=== PATIENT | male | born 1975 | race African-American/Black ===

== ENCOUNTER 2016-07-04 17:56 | Emergency (ER) | payer BC, OTHER ==
[2016-07-04 18:20] VITALS: BP 105/55; PULSE 78; RESP 20; TEMP 97.8
[2016-07-04] MEDS ORDERED: ORPHENADRINE 30 MG/ML 2 ML VIAL IM STA (18:34)
[2016-07-04] MEDS ORDERED: KETOROLAC 60 MG/2 ML VIAL IM STA (18:34)
--- NOTE | 2016-07-04 18:38 | ED ---
Back Pain HPI - General Chief Complaint: Back Pain/Injury Stated Complaint: Back spasm Time Seen by Provider: 07/04/16 18:26 Source: patient, RN notes reviewed, old records reviewed Limitations: no limitations - History of Present Illness Initial Comments: This is a 40-year-old male presenting to the emergency Department chief complaint of lumbar back spasm. Patient warts is going on for the past 5 days. He reports that it is caused by sleeping on a hard foods on for the past week. Patient states he has no numbness or tingling going down his legs. Denies any saddle anesthesias. Patient reports that he's taken a Flexeril from a previous prescription as well as Motrin 800. Patient states that he's had no fever or chills, no nausea or vomiting or dysuria or hematuria or change in bowel movements. - Related Data Home Medications Medication Instructions Recorded Confirmed Ibuprofen [Motrin] 800 mg PO TID PRN 07/04/16 07/04/16 Previous Rx's Medication Instructions Recorded Cyclobenzaprine [Flexeril] 10 mg PO TID PRN #15 tab 07/23/15 Acetaminophen-Codeine 300-30mg 1 tab PO Q4H PRN #12 tablet 07/04/16 [Tylenol #3] RX: Baclofen 10 mg PO TID #30 tab 07/04/16 RX: Dexamethasone 0.75 mg PO DAILY #12 tab 07/04/16 Allergies Allergy/AdvReac Type Severity Reaction Status Date / Time Penicillins Allergy Swelling Verified 07/04/16 18:56 Review of Systems ROS Statement: Those systems with pertinent positive or pertinent negative responses have been documented in the HPI. ROS Other: All systems not noted in ROS Statement are negative. Past Medical History Past Medical History: No Reported History History of Any Multi-Drug Resistant Organisms: None Reported Past Surgical History: No Surgical Hx Reported Past Psychological History: No Psychological Hx Reported Smoking Status: Current every day smoker Past Alcohol Use History: Occasional Past Drug Use History: None Reported General Exam - General Exam Comments Initial Comments: This is a 40-year-old male. No acute distress. Limitations: no limitations General appearance: alert, in no apparent distress Head exam: Present: atraumatic, normocephalic, normal inspection Eye exam: Present: normal appearance, PERRL, EOMI. Absent: scleral icterus, conjunctival injection, periorbital swelling ENT exam: Present: normal exam, mucous membranes moist Neck exam: Present: normal inspection. Absent: tenderness, meningismus, lymphadenopathy Respiratory exam: Present: normal lung sounds bilaterally. Absent: respiratory distress, wheezes, rales, rhonchi, stridor Cardiovascular Exam: Present: regular rate, normal rhythm, normal heart sounds. Absent: systolic murmur, diastolic murmur, rubs, gallop, clicks GI/Abdominal exam: Present: soft, normal bowel sounds. Absent: distended, tenderness, guarding, rebound, rigid Extremities exam: Present: normal inspection, full ROM, normal capillary refill. Absent: tenderness, pedal edema, joint swelling, calf tenderness Back exam: Present: normal inspection, tenderness (Lumbar spinal tenderness.), muscle spasm. Absent: CVA tenderness (R), CVA tenderness (L), paraspinal tenderness, vertebral tenderness, rash noted Neurological exam: Present: alert, oriented X3, CN II-XII intact Psychiatric exam: Present: normal affect, normal mood Skin exam: Present: warm, dry, intact, normal color. Absent: rash Course Vital Signs 07/04/16 18:18 Temperature 97.8 F Pulse Rate 78 Respiratory 20 Rate Blood Pressure 105/55 O2 Sat by Pulse 100 Oximetry Medical Decision Making - Medical Decision Making This is a 40-year-old male presenting with chief Lower back strain and pain. Patient CT lumbar spine x-ray is negative for acute process. Patient reports the injury occurred after sleeping on a mattress that is uncomfortable for the past week. Patient refused IM Toradol and Norflex shots. Patient will be discharged with muscle relaxers, steroid and pain medication. Discussed close follow-up with primary care provider. Patient understands return parameters including saddle anesthesias. Patient understands treatment plan will comply. Return parameters were discussed. - Radiology Data Radiology results: report reviewed Normal lumbar spine. Disposition Clinical Impression: Lumbar paraspinal muscle spasm Disposition: HOME SELF-CARE Condition: Good Instructions: Acute Low Back Pain (ED) Additional Instructions: Is advised to rest, apply heat and ice to the back. Take the prescriptions as directed. Return to the emergency department if any alarming signs or symptoms occur including loss of bowel and bladder control. Patient should follow-up with primary care provider in the orthopedic physician for further evaluation if any concerns. Prescriptions: Acetaminophen-Codeine 300-30mg [Tylenol #3] 1 tab PO Q4H PRN #12 tablet PRN Reason: Pain RX: Baclofen 10 mg PO TID #30 tab RX: Dexamethasone 0.75 mg PO DAILY #12 tab Referrals: Alva Bajwa MD [STAFF PHYSICIAN] - 1-2 days Time of Disposition: 19:23
--- NOTE | 2016-07-04 19:18 | XR ---
EXAMINATION TYPE: XR lumbar spine 2 or 3V DATE OF EXAM: 07/04/2016 COMPARISON: NONE HISTORY: Pain TECHNIQUE: 3 view lumbar spine FINDINGS: There 5 lumbar-type vertebral bodies. Pedicles are intact. Disc heights are preserved. Vert ebral body heights are preserved. Alignment is normal. IMPRESSION: 1. Normal three-view lumbar spine
== END 2016-07-04 19:42 | disposition home or self-care (01) ==
LOC: EC 17:56
DX: M62.830 Muscle spasm of back (principal); F17.200 Nicotine dependence, unspecified, uncomplicated; Z88.0 Allergy status to penicillin
CPT/HCPCS: 72100; 99284

== ENCOUNTER 2017-08-03 11:23 | Emergency (ER) | payer SELFPAY ==
[2017-08-03 12:09] VITALS: BP 115/71; PULSE 70; RESP 18; TEMP 98.2
--- NOTE | 2017-08-03 12:30 | ED ---
General Adult HPI - General Chief complaint: Extremity Problem,Nontraumatic Stated complaint: Wrist Pain Time Seen by Provider: 08/03/17 12:17 Source: patient, RN notes reviewed Mode of arrival: ambulatory Limitations: no limitations - History of Present Illness Initial comments: Patient 41-year-old male presenting to the emergency room today with a chief complaint of pain from his carpal tunnel. Patient does admit that he had surgery on the left. Also admits that he has some pain now on the right. Patient states hands feel somewhat swollen last few days. 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 Patient states he try to the family doctor today but had an insurance issue state he came here to the emergency room. He states he did not go to work today. States he is out of his ibuprofen 800 mg. Patient denies any recent fever, chills, shortness of breath, chest pain, back pain, abdominal pain, nausea or vomiting, numbness or tingling, headaches or visual changes, or any other complaints. - Related Data Home Medications Medication Instructions Recorded Confirmed Ibuprofen [Motrin] 800 mg PO TID PRN 07/04/16 07/04/16 Previous Rx's Medication Instructions Recorded Cyclobenzaprine [Flexeril] 10 mg PO TID PRN #15 tab 07/23/15 Acetaminophen-Codeine 300-30mg 1 tab PO Q4H PRN #12 tablet 07/04/16 [Tylenol #3] Baclofen 10 mg PO TID #30 tab 07/04/16 Dexamethasone 0.75 mg PO DAILY #12 tab 07/04/16 Dexamethasone 0.75 mg PO DIRECTED #12 tablet 08/03/17 Ibuprofen [Motrin] 800 mg PO Q6HR #30 tab 08/03/17 Allergies Allergy/AdvReac Type Severity Reaction Status Date / Time Penicillins Allergy Swelling Verified 08/03/17 12:09 Review of Systems ROS Statement: Those systems with pertinent positive or pertinent negative responses have been documented in the HPI. ROS Other: All systems not noted in ROS Statement are negative. Past Medical History Past Medical History: No Reported History Additional Past Medical History / Comment(s): carpel tunnel History of Any Multi-Drug Resistant Organisms: None Reported Past Surgical History: No Surgical Hx Reported Additional Past Surgical History / Comment(s): carpel tunnel Past Psychological History: No Psychological Hx Reported Smoking Status: Current every day smoker Past Alcohol Use History: Occasional Past Drug Use History: None Reported General Exam - General Exam Comments Initial Comments: General: The patient is awake and alert, in no distress, and does not appear acutely ill. Neck: The neck is supple, there is no tenderness or JVD. Musculoskeletal: Normal appearance his hands bilaterally. Shows good range of motion. Does have tenderness with flexion at the left and right wrist against resistance. Patient strength 5/5. Radial pulse 2+ bilaterally. Sensations intact. Neurological: A&O x 3. CN II-XII intact, There are no obvious motor or sensory deficits. Coordination appears grossly intact. Speech is normal. Skin: Skin is warm and dry and no rashes or lesions are noted. Psychiatric: Normal mood and affect. Limitations: no limitations Course Vital Signs 08/03/17 12:07 Temperature 98.2 F Pulse Rate 70 Respiratory 18 Rate Blood Pressure 115/71 O2 Sat by Pulse 100 Oximetry Medical Decision Making - Medical Decision Making Patient advised to follow-up with family doctor also a orthopedic for further evaluation and possible treatment. Patient will be given a prescription for his ibuprofen 800 mg and given a short course of steroids for his symptoms. Disposition Clinical Impression: Carpal tunnel syndrome Disposition: HOME SELF-CARE Condition: Good Instructions: Arthralgia (ED) Additional Instructions: Please use medication as discussed. Please follow-up with orthopedic/family doctor in the next 2-5 days of symptoms have not improved. Please return to emergency room if the symptoms increase or worsen or for any other concerns. Prescriptions: Dexamethasone 0.75 mg PO DIRECTED #12 tablet Ibuprofen [Motrin] 800 mg PO Q6HR #30 tab Is patient prescribed a controlled substance at d/c from ED?: No Referrals: Jaime Pinto MD [Primary Care Provider] - 1-2 days Julien Goss DO [Doctor of Osteopathic Medicine] - 1-2 days Time of Disposition: 12:28
== END 2017-08-03 12:40 | disposition home or self-care (01) ==
LOC: EC 11:23
DX: G56.01 Carpal tunnel syndrome, right upper limb (principal); F17.200 Nicotine dependence, unspecified, uncomplicated; Z88.0 Allergy status to penicillin; Z98.890 Other specified postprocedural states
CPT/HCPCS: 99283

== ENCOUNTER 2018-09-06 02:36 | Emergency (ER) | payer OTHER ==
[2018-09-06 02:52] VITALS: BP 114/75; PULSE 70; RESP 18; TEMP 98.4
[2018-09-06] MEDS ORDERED: SULFAMETHOX-TMP 800-160MG 1 EACH TAB PO STA (03:35)
--- NOTE | 2018-09-06 03:52 | ED ---
General Adult HPI - General Chief complaint: Skin/Abscess/Foreign Body Stated complaint: Jaw Swelling Time Seen by Provider: 09/06/18 02:53 Source: patient Mode of arrival: ambulatory Limitations: no limitations - History of Present Illness Initial comments: Patient is a 43-year-old male presenting to emergency Department with a chief complaint of right-sided face swelling. Patient reports the swelling on the right side of his lower jaw started approximately a week ago and has gradually increased in size. Patient denies any tenderness, drainage or skin discoloration at the site of swelling. Patient denies any trouble swallowing, drooling, nausea vomiting. Patient denies any fevers, night sweats or chills. Patient reports a history of frequent ingrown hairs. - Related Data Home Medications Medication Instructions Recorded Confirmed Ibuprofen [Motrin] 800 mg PO TID PRN 07/04/16 07/04/16 Previous Rx's Medication Instructions Recorded Cyclobenzaprine [Flexeril] 10 mg PO TID PRN #15 tab 07/23/15 Acetaminophen-Codeine 300-30mg 1 tab PO Q4H PRN #12 tablet 07/04/16 [Tylenol #3] Baclofen 10 mg PO TID #30 tab 07/04/16 Dexamethasone 0.75 mg PO DAILY #12 tab 07/04/16 Dexamethasone 0.75 mg PO DIRECTED #12 tablet 08/03/17 Ibuprofen [Motrin] 800 mg PO Q6HR #30 tab 08/03/17 Sulfamethox-Tmp 800-160Mg [Bactrim 1 each PO Q12HR #20 tab 09/06/18 Ds] Allergies Allergy/AdvReac Type Severity Reaction Status Date / Time Penicillins Allergy Swelling Verified 09/06/18 02:52 Review of Systems ROS Statement: Those systems with pertinent positive or pertinent negative responses have been documented in the HPI. ROS Other: All systems not noted in ROS Statement are negative. Past Medical History Past Medical History: No Reported History Additional Past Medical History / Comment(s): carpel tunnel History of Any Multi-Drug Resistant Organisms: None Reported Past Surgical History: No Surgical Hx Reported Additional Past Surgical History / Comment(s): carpel tunnel Past Psychological History: No Psychological Hx Reported Smoking Status: Current every day smoker Past Alcohol Use History: Occasional Past Drug Use History: Marijuana General Exam Limitations: no limitations General appearance: alert, in no apparent distress Head exam: Present: atraumatic, normocephalic, normal inspection Eye exam: Present: normal appearance, PERRL, EOMI Pupils: Present: normal accommodation ENT exam: Present: normal exam, mucous membranes moist, TM's normal bilaterally, normal external ear exam. Absent: normal oropharynx (Left tonsil enlargement) Neck exam: Present: normal inspection, full ROM, lymphadenopathy (Right posterior cervical). Absent: tenderness Respiratory exam: Present: normal lung sounds bilaterally Cardiovascular Exam: Present: regular rate, normal rhythm Extremities exam: Present: normal inspection, full ROM Back exam: Present: normal inspection, full ROM Neurological exam: Present: alert, oriented X3 Psychiatric exam: Present: normal affect, normal mood Skin exam: Present: warm, intact, normal color Course Vital Signs 09/06/18 02:49 Temperature 98.4 F Pulse Rate 70 Respiratory 18 Rate Blood Pressure 114/75 O2 Sat by Pulse 100 Oximetry Disposition Clinical Impression: Swelling, mass, or lump on face Disposition: HOME SELF-CARE Condition: Stable Instructions (If sedation given, give patient instructions): MRSA (Methicillin- Resistant Staphylococcus Aureus) (ED) Additional Instructions: Please take prescribed medication as directed. Please follow up with general surgery. Apply warm compress at the site of swelling. Return to emergency department if symptoms worsen. Prescriptions: Sulfamethox-Tmp 800-160Mg [Bactrim Ds] 1 each PO Q12HR #20 tab Is patient prescribed a controlled substance at d/c from ED?: No Referrals: Jaime Pinto MD [Primary Care Provider] - 1-2 days Time of Disposition: 03:55
== END 2018-09-06 04:42 | disposition home or self-care (01) ==
LOC: EC 02:36
DX: R22.0 Localized swelling, mass and lump, head (principal); J35.1 Hypertrophy of tonsils; F17.200 Nicotine dependence, unspecified, uncomplicated; Z88.0 Allergy status to penicillin
CPT/HCPCS: 99283

== ENCOUNTER 2018-09-28 13:52 | Emergency (ER) | payer OTHER ==
[2018-09-28 13:58] VITALS: BP 125/75; PULSE 90; RESP 18; TEMP 97.8
--- NOTE | 2018-09-28 14:21 | ED ---
Back Pain HPI - General Chief Complaint: Back Pain/Injury Stated Complaint: Lt sided numbness Time Seen by Provider: 09/28/18 14:01 Source: patient, RN notes reviewed Limitations: no limitations - History of Present Illness Initial Comments: This a 43-year-old male presents emergency Department chief complaint of low back pain, left leg pain and numbness. Patient states that symptoms started we will MORNING. Patient also has a history of carpal tunnel and he's been having issues with numbness of his hands. Denies any focal weakness denies headache, neck pain or neck stiffness. Denies any chest pain or shortness breath. Patient is not taking any medications today for symptoms. Patient does do strenuous work daily has been working more than usual. He has no difficulty ambulating denies any blurred vision no facial symptoms. - Related Data Home Medications Medication Instructions Recorded Confirmed Ibuprofen [Motrin] 800 mg PO TID PRN 07/04/16 07/04/16 Previous Rx's Medication Instructions Recorded Cyclobenzaprine [Flexeril] 10 mg PO TID PRN #15 tab 07/23/15 Acetaminophen-Codeine 300-30mg 1 tab PO Q4H PRN #12 tablet 07/04/16 [Tylenol #3] Baclofen 10 mg PO TID #30 tab 07/04/16 Dexamethasone 0.75 mg PO DAILY #12 tab 07/04/16 Dexamethasone 0.75 mg PO DIRECTED #12 tablet 08/03/17 Ibuprofen [Motrin] 800 mg PO Q6HR #30 tab 08/03/17 Sulfamethox-Tmp 800-160Mg [Bactrim 1 each PO Q12HR #20 tab 09/06/18 Ds] Cyclobenzaprine [Flexeril] 10 mg PO TID PRN #15 tab 09/28/18 predniSONE 50 mg PO DAILY #5 tab 09/28/18 Allergies Allergy/AdvReac Type Severity Reaction Status Date / Time Penicillins Allergy Swelling Verified 09/28/18 13:58 Review of Systems ROS Statement: Those systems with pertinent positive or pertinent negative responses have been documented in the HPI. ROS Other: All systems not noted in ROS Statement are negative. Past Medical History Past Medical History: No Reported History Additional Past Medical History / Comment(s): carpel tunnel, back pain History of Any Multi-Drug Resistant Organisms: None Reported Past Surgical History: No Surgical Hx Reported Additional Past Surgical History / Comment(s): carpel tunnel Past Psychological History: No Psychological Hx Reported Smoking Status: Current every day smoker Past Alcohol Use History: Occasional Past Drug Use History: Marijuana General Exam Limitations: no limitations General appearance: alert, in no apparent distress Head exam: Present: atraumatic, normocephalic, normal inspection Eye exam: Present: normal appearance, PERRL, EOMI. Absent: scleral icterus, conjunctival injection, periorbital swelling ENT exam: Present: normal exam, normal oropharynx, mucous membranes moist Neck exam: Present: normal inspection, full ROM. Absent: tenderness, meningismus, lymphadenopathy Respiratory exam: Present: normal lung sounds bilaterally. Absent: respiratory distress, wheezes, rales, rhonchi, stridor Cardiovascular Exam: Present: regular rate, normal rhythm, normal heart sounds. Absent: systolic murmur, diastolic murmur, rubs, gallop, clicks GI/Abdominal exam: Present: soft, normal bowel sounds. Absent: distended, tenderness, guarding, rebound, rigid Extremities exam: Present: other (Lower extremity strength equal bilaterally, pain with left straight leg raise, pulses are equal bilaterally equal color equal warmth, upper extremity full range of motion full-strength neurovascular intact, pain with Tinel's) Back exam: Present: full ROM, tenderness (Mild left lower lumbar), paraspinal tenderness. Absent: vertebral tenderness Neurological exam: Present: alert, CN II-XII intact, reflexes normal, other (Finger to nose equal bilaterally, equal strength of all extremities). Absent: oriented X3, motor sensory deficit Skin exam: Present: warm, dry, intact, normal color. Absent: rash Course Vital Signs 09/28/18 13:54 Temperature 97.8 F Pulse Rate 90 Respiratory 18 Rate Blood Pressure 125/75 O2 Sat by Pulse 99 Oximetry Medical Decision Making - Medical Decision Making 43-year-old male presented for bilateral hand numbness and left low back pain. Patient has typical sciatica. He has no red flag symptoms including bowel bladder incontinence or retention. Patient also has some carpal tunnel which is chronic for him. Patient will be given a burst of steroids, pain medication and follow-up with orthopedics. Disposition Clinical Impression: Sciatica, Carpal tunnel syndrome Disposition: HOME SELF-CARE Condition: Stable Instructions (If sedation given, give patient instructions): Acute Low Back Pain (ED) Additional Instructions: Please return to the Emergency Department if symptoms worsen or any other concerns. Prescriptions: Cyclobenzaprine [Flexeril] 10 mg PO TID PRN #15 tab PRN Reason: Muscle Spasm predniSONE 50 mg PO DAILY #5 tab Is patient prescribed a controlled substance at d/c from ED?: No Referrals: Jaime Pinto MD [Primary Care Provider] - 1-2 days Madyson Butler DO [Doctor of Osteopathic Medicine] - 1-2 days Time of Disposition: 15:03
--- NOTE | 2018-09-28 14:44 | XR ---
EXAMINATION TYPE: XR lumbosacral spine min 4V DATE OF EXAM: 09/28/2018 COMPARISON: 07/04/2016 HISTORY: Back pain TECHNIQUE: 5 views FINDINGS: Vertebra have fairly normal spacing and alignment. Posterior elements are intact. Sacroilia c joints appear intact. There is no compression fracture. IMPRESSION: Negative lumbar spine exam. No fracture.
[2018-09-28] MEDS ORDERED: ACET/COD 300 MG/30 MG STARTER PACK 6 TAB BTL PO STA (15:03)
== END 2018-09-28 15:23 | disposition home or self-care (01) ==
LOC: EC 13:52
DX: M54.42 Lumbago with sciatica, left side (principal); G56.03 Carpal tunnel syndrome, bilateral upper limbs; F17.200 Nicotine dependence, unspecified, uncomplicated; Z88.0 Allergy status to penicillin; Z98.890 Other specified postprocedural states; X50.0XXA Overexertion from strenuous movement or load, initial encounter
CPT/HCPCS: 72110; 99283

== ENCOUNTER 2018-10-22 18:43 | Emergency (ER) | payer OTHER ==
[2018-10-22 19:21] VITALS: BP 128/77; PULSE 90; RESP 20; TEMP 98.3
--- NOTE | 2018-10-22 20:09 | ED ---
Back Pain HPI - General Chief Complaint: Back Pain/Injury Stated Complaint: Lower back pain Time Seen by Provider: 10/22/18 19:27 Source: patient Limitations: no limitations - History of Present Illness Initial Comments: Patient is a 43-year-old male presenting to emergency Department with complaints of left-sided low back pain has been ongoing for 2-3 weeks now. Patient was in the ER previously for same complaint. Patient states he recently has his insurance again and is waiting to go back to his PCP. Patient denies any new trauma or injuries to his back. Patient states the pain is about the same as before. Patient states he occasionally has radiation into his left leg. Patient denies any saddle paresthesias, trouble with urination or defecation. Patient denies fever, chills. Patient has no other complaints at this time. Upon arrival to ER, vital signs are stable. - Related Data Home Medications Medication Instructions Recorded Confirmed Ibuprofen [Motrin] 800 mg PO TID PRN 07/04/16 07/04/16 Previous Rx's Medication Instructions Recorded Cyclobenzaprine [Flexeril] 10 mg PO TID PRN #15 tab 07/23/15 Acetaminophen-Codeine 300-30mg 1 tab PO Q4H PRN #12 tablet 07/04/16 [Tylenol #3] Baclofen 10 mg PO TID #30 tab 07/04/16 Dexamethasone 0.75 mg PO DAILY #12 tab 07/04/16 Dexamethasone 0.75 mg PO DIRECTED #12 tablet 08/03/17 Ibuprofen [Motrin] 800 mg PO Q6HR #30 tab 08/03/17 Sulfamethox-Tmp 800-160Mg [Bactrim 1 each PO Q12HR #20 tab 09/06/18 Ds] Cyclobenzaprine [Flexeril] 10 mg PO TID PRN #15 tab 09/28/18 predniSONE 50 mg PO DAILY #5 tab 09/28/18 Cyclobenzaprine [Flexeril] 5 mg PO BID #15 tablet 10/22/18 Ibuprofen [Motrin] 600 mg PO Q8HR PRN #20 tab 10/22/18 Allergies Allergy/AdvReac Type Severity Reaction Status Date / Time Penicillins Allergy Swelling Verified 10/22/18 19:21 Review of Systems ROS Statement: Those systems with pertinent positive or pertinent negative responses have been documented in the HPI. ROS Other: All systems not noted in ROS Statement are negative. Past Medical History Past Medical History: No Reported History Additional Past Medical History / Comment(s): carpel tunnel, back pain History of Any Multi-Drug Resistant Organisms: None Reported Past Surgical History: No Surgical Hx Reported Additional Past Surgical History / Comment(s): carpel tunnel Past Psychological History: No Psychological Hx Reported Smoking Status: Current every day smoker Past Alcohol Use History: Occasional Past Drug Use History: Marijuana General Exam - General Exam Comments Initial Comments: GENERAL: Well-appearing, well-nourished and in no acute distress. HEAD: Atraumatic, normocephalic. EYES: Pupils equal round and reactive to light, extraocular movements intact, sclera anicteric, conjunctiva are normal. ENT: TMs normal, nares patent, oropharynx clear without exudates. Moist mucous membranes. NECK: Normal range of motion, supple without lymphadenopathy or JVD. LUNGS: Breath sounds clear to auscultation bilaterally and equal. No wheezes rales or rhonchi. HEART: Regular rate and rhythm without murmurs, rubs or gallops. ABDOMEN: Soft, nontender, normoactive bowel sounds. No guarding, no rebound. No masses appreciated. : Deferred EXTREMITIES: Normal range of motion, no pitting or edema. No clubbing or cyanosis. Pain with palpation on the left lumbar paraspinals, muscle spasm present. No pain with palpation of the spinous process. Strength is 5 out of 5 upper and lower extremities. Sensation is equal and bilateral. NEUROLOGICAL: Cranial nerves II through XII grossly intact. Normal speech, normal gait. PSYCH: Normal mood, normal affect. SKIN: Warm, Dry, normal turgor, no rashes or lesions noted. Limitations: no limitations Course Vital Signs 10/22/18 19:18 Temperature 98.3 F Pulse Rate 90 Respiratory 20 Rate Blood Pressure 128/77 O2 Sat by Pulse 99 Oximetry Medical Decision Making - Medical Decision Making Patient is a 43-year-old male presenting with left lumbar radiculopathy symptoms have been ongoing for 2-3 weeks. Patient was in the ER previously for same complaint. Patient now has insurance and is waiting to go to his PCP. Patient's exam is consistent with left lumbar radiculopathy. Patient has muscle spasm in the left lumbar paraspinals. Patient will be given trial of Flexeril along with ibuprofen. Patient will follow up with his PCP for further management. Patient is agreement with this plan of care. Patient is stable for discharge at this time. Return parameters were discussed with the patient he verbalizes understanding. Case discussed with Dr. Hardy. Disposition Clinical Impression: Strain of lumbar region, Sciatica Disposition: HOME SELF-CARE Condition: Stable Instructions (If sedation given, give patient instructions): Acute Low Back Pain (ED) Additional Instructions: Please return to the Emergency Department if symptoms worsen or any other concerns. Follow up with Dr. Pinto as discussed. Use heat to the area as well as gentle stretching. Prescriptions: Cyclobenzaprine [Flexeril] 5 mg PO BID #15 tablet Ibuprofen [Motrin] 600 mg PO Q8HR PRN #20 tab PRN Reason: Pain Is patient prescribed a controlled substance at d/c from ED?: No Referrals: Jaime Pinto MD [Primary Care Provider] - 1-2 days
== END 2018-10-22 20:30 | disposition home or self-care (01) ==
LOC: EC 18:43
DX: S39.012A Strain of muscle, fascia and tendon of lower back, initial encounter (principal); M54.42 Lumbago with sciatica, left side; F17.200 Nicotine dependence, unspecified, uncomplicated; Z88.0 Allergy status to penicillin; X58.XXXA Exposure to other specified factors, initial encounter
CPT/HCPCS: 99283

== ENCOUNTER → 2018-10-24 | Outpatient (CLI) | payer OTHER ==
--- NOTE | 2018-10-25 05:09 | XR ---
EXAMINATION TYPE: XR cervical spine 5 views comp, XR thoracic spine 3 views complete, XR lumbar spine 3V DATE OF EXAM: 10/24/2018 COMPARISON: None HISTORY: 43-year-old male with chronic back pain, R52 FINDINGS: Cervical spine: Mild uncovertebral joint arthropathy mid to lower cervical spine. No significant bony neuroforaminal narrowing seen on either side. Mild endplate spondylosis seen at C4-C6 levels. Alignment is maintaine d. Facet arthropathy lower cervical spine. No predental space widening or prevertebral soft tissue sw elling. Normal odontoid view. Thoracic spine: 12 rib-bearing thoracic vertebral bodies. Mild dextroconvex scoliotic curvature centered along the lo wer thoracic spine. All pedicles are visualized. Mild endplate spondylosis lower thoracic spine. Vert ebral body heights are preserved and alignment is maintained. Lumbar spine: Facet arthropathy lower lumbar spine. Moderate loss of disc height at L5-S1. Vertebral body heights a re preserved and alignment is maintained. IMPRESSION: 1. Cervical spine: Mild scattered spondylotic change. No prevertebral soft tissue swelling or malalig nment. 2. Thoracic spine: Mild dextroconvex scoliosis centered along the lower thoracic spine. Additional mi ld endplate spondylosis lower thoracic spine. No vertebral compression collapse or malalignment. 3. Lumbar spine: Facet arthropathy lower lumbar spine and moderate degenerative disc disease at L5-S1 . No vertebral compression collapse or malalignment.
== END | disposition home or self-care (01) ==
LOC: RADXRMAIN 15:24
PROVIDERS: ATTEND Internal Medicine
DX: M51.37 Other intervertebral disc degeneration, lumbosacral region (principal); M47.812 Spondylosis without myelopathy or radiculopathy, cervical region; M47.814 Spondylosis without myelopathy or radiculopathy, thoracic region; M46.97 Unspecified inflammatory spondylopathy, lumbosacral region; M41.84 Other forms of scoliosis, thoracic region
CPT/HCPCS: 72050; 72072; 72100

== ENCOUNTER 2019-05-03 21:14 | Emergency (ER) | payer OTHER ==
[2019-05-03 21:19] VITALS: BP 128/74; PULSE 93; RESP 16; TEMP 98.8
[2019-05-03] MEDS ORDERED: LIDOCAINE 1% INJ 10MG/ML (20 ML MDV) SQ ONE (21:35)
[2019-05-03] MEDS ORDERED: SULFAMETH-TMP DS STARTER PACK 2 TAB BTL PO STA (21:35)
--- NOTE | 2019-05-03 21:55 | ED ---
Skin/Abscess/FB HPI - General Chief complaint: Skin/Abscess/Foreign Body Stated complaint: Abscess Time Seen by Provider: 05/03/19 21:21 Source: patient Mode of arrival: ambulatory Limitations: no limitations - History of Present Illness Initial comments: 43-year-old male presenting today for cc of abscess right side of head. Patient states about a week ago he thought he was developing a pimple attempted to pop the lesion and it grew in size. Patient has had this before on face and needed antibiotics. Denies history of MRSA. Denies fever, chills, headches. Patient denies scalp redness. Patient denies any other complaints. Upon arrival he appears well nontoxic, no acute distress. - Related Data Home Medications Medication Instructions Recorded Confirmed Ibuprofen [Motrin] 800 mg PO TID PRN 07/04/16 07/04/16 Previous Rx's Medication Instructions Recorded Cyclobenzaprine [Flexeril] 10 mg PO TID PRN #15 tab 07/23/15 Acetaminophen-Codeine 300-30mg 1 tab PO Q4H PRN #12 tablet 07/04/16 [Tylenol #3] Baclofen 10 mg PO TID #30 tab 07/04/16 Dexamethasone 0.75 mg PO DAILY #12 tab 07/04/16 Dexamethasone 0.75 mg PO DIRECTED #12 tablet 08/03/17 Ibuprofen [Motrin] 800 mg PO Q6HR #30 tab 08/03/17 Sulfamethox-Tmp 800-160Mg [Bactrim 1 each PO Q12HR #20 tab 09/06/18 Ds] Cyclobenzaprine [Flexeril] 10 mg PO TID PRN #15 tab 09/28/18 predniSONE 50 mg PO DAILY #5 tab 09/28/18 Cyclobenzaprine [Flexeril] 5 mg PO BID #15 tablet 10/22/18 Ibuprofen [Motrin] 600 mg PO Q8HR PRN #20 tab 10/22/18 Sulfamethox-Tmp 800-160Mg [Bactrim 1 tab PO Q12HR 10 Days #20 tab 05/03/19 DS 800-160 mg] Allergies Allergy/AdvReac Type Severity Reaction Status Date / Time Penicillins Allergy Swelling Verified 05/03/19 21:20 Review of Systems ROS Statement: Those systems with pertinent positive or pertinent negative responses have been documented in the HPI. ROS Other: All systems not noted in ROS Statement are negative. Past Medical History Past Medical History: No Reported History Additional Past Medical History / Comment(s): carpel tunnel, back pain History of Any Multi-Drug Resistant Organisms: None Reported Past Surgical History: No Surgical Hx Reported Additional Past Surgical History / Comment(s): carpel tunnel Past Psychological History: No Psychological Hx Reported Smoking Status: Current every day smoker Past Alcohol Use History: Occasional Past Drug Use History: Marijuana General Exam - General Exam Comments Initial Comments: General: The patient is awake and alert, in no distress, and does not appear acutely ill. Eye: +3 mm pupils are equal, round and reactive to light, extra-ocular movements are intact. No nystagmus. There is normal conjunctiva bilaterally. No signs of icterus. Gastrointestinal: Soft, non-distended, non-tender abdomen without masses or organomegaly noted. There is no rebound or guarding present Musculoskeletal: Normal ROM, no tenderness. Strength 5/5. Sensation intact. Pulses equal bilaterally 2+. Neurological: A&O x 3. CN II-XII intact grossly, There are no obvious motor or sensory deficits. Coordination appears grossly intact. Speech is normal. Skin: Skin is warm and dry and no rashes. 2x2cm fluctuant abscess-- no surrounding abscess. Psychiatric: Cooperative, appropriate mood & affect, normal judgment. Limitations: no limitations Course Vital Signs 05/03/19 21:16 Temperature 98.8 F Pulse Rate 93 Respiratory 16 Rate Blood Pressure 128/74 O2 Sat by Pulse 100 Oximetry Procedures - Incision & Drainage Consent Obtained: verbal consent Indication: abscess Site: scalp Size (cm): 2 Anesthetic Used: lidocaine 1% Amount (mLs): 1 I&D Cleaning Method: Iodine Scalpel Used: #11 Needle Aspiration Performed?: Yes (blood/pus) Irrigation Performed?: Yes I&D Drainage Obtained: Pus, Blood Culture Obtained?: Yes Patient Tolerated Procedure: well, no complications Medical Decision Making - Medical Decision Making 43-year-old male presenting for abscess. The abscess was not over the temporal areas over the parietal aspect of the scalp. I&D'd. No fevers, does not appears toxic. No surrounding redness. Cultures pending Previous success with bactrim montherapy for similar symptoms. Abx initiated in ER. Patient will be discharged with dermatology and pcp f/u. Return parameters discussed and patient was discharged appearing well. Disposition Clinical Impression: Abscess Disposition: HOME SELF-CARE Condition: Good Instructions (If sedation given, give patient instructions): Abscess Incision and Drainage (ED), Abscess (ED) Additional Instructions: Please use medication as discussed. Please follow-up with family doctor in the next 2 days, as well as dermatology. Please return to emergency room if the symptoms increase or worsen or for any other concerns. Prescriptions: Sulfamethox-Tmp 800-160Mg [Bactrim DS 800-160 mg] 1 tab PO Q12HR 10 Days #20 tab Is patient prescribed a controlled substance at d/c from ED?: No Referrals: Jaime Pinto MD [Primary Care Provider] - 1-2 days Tangela Glynn MD [STAFF PHYSICIAN] - 1-2 days Time of Disposition: 21:55
[2019-05-03] MEDS ORDERED: ACET/COD 300 MG/30 MG STARTER PACK 6 TAB BTL PO STA (21:58)
== END 2019-05-03 22:04 | disposition home or self-care (01) ==
LOC: EC 21:14
DX: L02.811 Cutaneous abscess of head [any part, except face] (principal); F17.200 Nicotine dependence, unspecified, uncomplicated; Z88.0 Allergy status to penicillin
CPT/HCPCS: 87070; 87205; 99283; 10060; J2001

== ENCOUNTER 2019-05-27 15:47 | Emergency (ER) | payer OTHER ==
[2019-05-27 16:20] VITALS: BP 136/73; PULSE 74; RESP 18; TEMP 97.6
--- NOTE | 2019-05-27 16:49 | ED ---
ENT HPI - General Chief complaint: Dental/Oral Stated complaint: dental pain Time Seen by Provider: 05/27/19 16:21 Source: patient Mode of arrival: ambulatory Limitations: no limitations - History of Present Illness Initial comments: 43-year-old male presented for chief complaint of right upper dental pain. Patient states every time he chews he is pain in the right upper tooth he states there was a cavity there. He denies any facial swelling he denies any palpable abscess he denies any drainage from the mouth. Patient does find a ton of the neck. Patient states he does not believe disimpacted yet but is concerned this could happen patient states he has been unable to get an appointment with his dentist. Patient denies any other additional complaints upon arrival he appears well no acute distress. He denies any fevers is afebrile upon arrival. - Related Data Home Medications Medication Instructions Recorded Confirmed Ibuprofen [Motrin] 800 mg PO TID PRN 07/04/16 07/04/16 Previous Rx's Medication Instructions Recorded Cyclobenzaprine [Flexeril] 10 mg PO TID PRN #15 tab 07/23/15 Acetaminophen-Codeine 300-30mg 1 tab PO Q4H PRN #12 tablet 07/04/16 [Tylenol #3] Baclofen 10 mg PO TID #30 tab 07/04/16 Dexamethasone 0.75 mg PO DAILY #12 tab 07/04/16 Dexamethasone 0.75 mg PO DIRECTED #12 tablet 08/03/17 Ibuprofen [Motrin] 800 mg PO Q6HR #30 tab 08/03/17 Sulfamethox-Tmp 800-160Mg [Bactrim 1 each PO Q12HR #20 tab 09/06/18 Ds] Cyclobenzaprine [Flexeril] 10 mg PO TID PRN #15 tab 09/28/18 predniSONE 50 mg PO DAILY #5 tab 09/28/18 Cyclobenzaprine [Flexeril] 5 mg PO BID #15 tablet 10/22/18 Ibuprofen [Motrin] 600 mg PO Q8HR PRN #20 tab 10/22/18 Sulfamethox-Tmp 800-160Mg [Bactrim 1 tab PO Q12HR 10 Days #20 tab 05/03/19 DS 800-160 mg] Clindamycin [Cleocin] 300 mg PO Q8H 7 Days #42 capsule 04/21/20 Allergies Allergy/AdvReac Type Severity Reaction Status Date / Time Penicillins Allergy Swelling Verified 05/27/19 16:16 Review of Systems ROS Statement: Those systems with pertinent positive or pertinent negative responses have been documented in the HPI. ROS Other: All systems not noted in ROS Statement are negative. Past Medical History Past Medical History: No Reported History Additional Past Medical History / Comment(s): carpel tunnel, back pain History of Any Multi-Drug Resistant Organisms: None Reported Past Surgical History: No Surgical Hx Reported Additional Past Surgical History / Comment(s): carpel tunnel Past Psychological History: No Psychological Hx Reported Smoking Status: Former smoker Past Alcohol Use History: Occasional Past Drug Use History: None Reported, Marijuana General Exam - General Exam Comments Initial Comments: General: The patient is awake and alert, in no distress, and does not appear acutely ill. Eye: Pupils are equal, round and reactive to light, extra-ocular movements are intact. No nystagmus. There is normal conjunctiva bilaterally. No signs of icterus. Ears, nose, mouth and throat: There are moist mucous membranes and no oral lesions. Very mild pain to percussion of tooth number tooth #2. No palpable abscess. No swelling below the tongue. Neck: The neck is supple, there is no tenderness or JVD. No swelling below the angle of the mandible Musculoskeletal: Normal ROM, no tenderness. Strength 5/5. Sensation intact. Radial pulses equal bilaterally 2+. Neurological: A&O x 3. CN II-XII intact, There are no obvious motor or sensory deficits. Coordination appears grossly intact. Speech is normal. Skin: Skin is warm and dry and no rashes or lesions are noted. Psychiatric: Cooperative, appropriate mood & affect, normal judgment. Limitations: no limitations Course Vital Signs 05/27/19 16:16 Temperature 97.6 F Pulse Rate 74 Respiratory 18 Rate Blood Pressure 136/73 O2 Sat by Pulse 98 Oximetry Medical Decision Making - Medical Decision Making 43-year-old male presenting today for dental plane ongoing for a few weeks. It hurts and patient chews. Patient has no obvious sign of infection cannot rule out periapical abscess however this does not appear present at this time. Patient does appear to have carious teeth. There is no signs of Herson's angina or systemic spread of infection. Patient will be discharged with an antibiotic and given instruction to follow-up with dentist. Patient is agreeable to this care plan return parameters were discussed the patient was discharged appearing well Disposition Clinical Impression: Pain, dental Disposition: HOME SELF-CARE Condition: Good Instructions (If sedation given, give patient instructions): Dental Abscess (ED), Toothache (ED) Additional Instructions: Please use medication as discussed. Please follow-up with family doctor in the next 2 days, follow-up with dentist in next week. Please return to emergency room if the symptoms increase or worsen or for any other concerns. Prescriptions: Clindamycin [Cleocin] 300 mg PO Q8H 7 Days #42 capsule Is patient prescribed a controlled substance at d/c from ED?: No Referrals: Jaime Pinto MD [Primary Care Provider] - 1-2 days Time of Disposition: 16:49
== END 2019-05-27 17:16 | disposition home or self-care (01) ==
LOC: EC 15:47
DX: K08.89 Other specified disorders of teeth and supporting structures (principal); K02.9 Dental caries, unspecified; Z88.0 Allergy status to penicillin; Z87.891 Personal history of nicotine dependence
CPT/HCPCS: 99282

== ENCOUNTER → 2019-07-10 | Outpatient (CLI) | payer OTHER ==
[2019-07-10 13:18] LABS: Basophils % (A) 1 %; Eosinophils # (A) 0.3 k/uL (0-0.7); Eosinophils % (A) 9 %; HCT 39.9 % (39.0-53.0); HGB 13.2 gm/dL (13.0-17.5); Lymphocytes # (A) 1.8 k/uL (1.0-4.8); Lymphocytes % (A) 44 %; MCH 31.1 pg (25.0-35.0); MCV 94.2 fL (80.0-100.0); Mean Platelet Volume 7.1; Monocytes # (A) 0.4 k/uL (0-1.0); Monocytes % (A) 9 %; Neutrophils # (A) 1.4 k/uL (1.3-7.7); Neutrophils % (A) 34 %; Platelet Count 202 k/uL (150-450); RBC 4.23 m/uL (4.30-5.90); RDW 13.8 % (11.5-15.5)
[2019-07-10 19:55] LABS: Hepatitis A Antibody IgM Non-Reactive (Non-Reactive); Hepatitis B Core IgM Non-Reactive (Non-Reactive); Hepatitis B Surface Antigen Non-Reactive (Non-Reactive); Hepatitis C IgG Antibody Non-Reactive (Non-Reactive)
[2019-07-11 00:30] LABS: African American GFR (CKD) 95.5 (60.0-200.0); Albumin 4.3 g/dL (3.80-4.90); Albumin/Globulin Ratio 1.65 (1.60-3.17); Anion Gap 5.6 mmol/L (4.00-12.00); Calcium 9.6 mg/dL (8.7-10.3); Carbon Dioxide 30.4 mmol/L (21.6-31.8); Globulin 2.6 g/dL (1.6-3.3); Non-African American GFR(CKD) 82.4 (60.0-200.0); Potassium 4.3 mmol/L (3.5-5.5); Total Bilirubin 0.4 mg/dL (0.3-1.2); Total Protein 6.9 g/dL (6.2-8.2)
[2019-07-11 06:14] LABS: Herpes simplex I and/or II IgM 0.36 INDEX (<=0.90); Herpes simplex IgG I Ab 11.5 (< or = 0.90); Herpes simplex IgG II Ab 1.73 (< or = 0.90)
[2019-07-11 08:47] LABS: HIV 2 AB Non-Reactive (Non-Reactive); HIV AB P24 Non-Reactive (Non-Reactive); HIV P24 AG Non-Reactive (Non-Reactive)
== END | disposition home or self-care (01) ==
LOC: LABWHC1 11:49
PROVIDERS: ATTEND Internal Medicine
DX: K08.9 Disorder of teeth and supporting structures, unspecified (principal); L08.9 Local infection of the skin and subcutaneous tissue, unspecified; Z20.2 Contact with and (suspected) exposure to infections with a predominantly sexual mode of transmission
CPT/HCPCS: 36415; 80053; 80074; 84443; 85025; 86694; 86695; 86696; 86780; 87390